=== PATIENT | male | born 1970 | race American Indian/Alaskan Native ===

== ENCOUNTER 2016-05-29 00:20 | Emergency (ER) | payer SELFPAY ==
--- NOTE | 2016-05-29 01:17 | C.PDOC ---
History Of Present Illness Patient presents to the ED complaining of a sudden onset of abdominal pain. Patient also complains of nausea and vomiting. He had 3 similar episodes in the past 6 months. This is the first time he is seeking medical attention for his symptoms. Patient states the pain is sharp and crampy. Patient denies any fever or chills. He is able to tolerate po. Time Seen by Provider: 05/29/16 01:24 Chief Complaint (Nursing): Abdominal Pain History Per: Patient History/Exam Limitations: no limitations Onset/Duration Of Symptoms: Sudden Onset Current Symptoms Are (Timing): Still Present Context: Other Severity: Mild Pain Scale Rating Of: 3 Location Of Pain/Discomfort: Diffuse Radiation Of Pain To:: None Quality Of Discomfort: Sharp, Cramping, "Pain" Associated Symptoms: Nausea, Vomiting Exacerbating Factors: None Alleviating Factors: None Last Bowel Movement: Today Recent travel outside of the [place]: No Additional History Per: Patient Past Medical History Reviewed: Historical Data, Nursing Documentation, Vital Signs Vital Signs: Last Vital Signs Temp 98.9 F 05/29/16 03:25 Pulse 87 05/29/16 03:25 Resp 16 05/29/16 03:25 BP 116/70 05/29/16 03:25 Pulse Ox 99 05/29/16 03:25 Family History: States: Unknown Family Hx - Social History Hx Alcohol Use: Yes Hx Substance Use: Yes - Immunization History Hx Tetanus Toxoid Vaccination: No Hx Influenza Vaccination: Yes Hx Pneumococcal Vaccination: No Review Of Systems Constitutional: Negative for: Fever, Chills Gastrointestinal: Positive for: Nausea, Vomiting, Abdominal Pain Physical Exam - Physical Exam Appears: Non-toxic, No Acute Distress Skin: Warm, Dry Head: Atraumatic, Normacephalic Eye(s): bilateral: PERRL, EOMI Oral Mucosa: Moist Neck: Supple Chest: Symmetrical Cardiovascular: Rhythm Regular Respiratory: No Rales, No Rhonchi, No Wheezing Gastrointestinal/Abdominal: Soft, Tenderness (RUQ), No Guarding, No Rebound Back: No CVA Tenderness Extremity: Bilateral: Atraumatic Neurological/Psych: Oriented x3 ED Course And Treatment - Laboratory Results Result Diagrams: 05/29/16 01:34 05/29/16 01:34 O2 Sat by Pulse Oximetry: 100 (RA) Pulse Ox Interpretation: Normal Progress Note: Plan: Labs, Pepcid, Zofran, Toradol, IV fluids Reevaluation Time: 04:53 Reassessment Condition: Improved Medical Decision Making Medical Decision Making: Upon provider reevaluation patient is feeling better, is medically stable, and requires no further treatment in the ED at this time. Patient will be discharged home with Rx for flagyl and tramadol . Counseling was provided and all questions were answered regarding diagnosis and need for follow up with dr nuno. There is agreement to discharge plan. Return if symptoms persist or worsen. Disposition Counseled Patient/Family Regarding: Studies Performed, Diagnosis, Need For Followup, Rx Given - Disposition Referrals: Ko Nuno MD [Staff Provider] - Disposition: HOME/ ROUTINE Disposition Time: 01:16 Condition: FAIR Additional Instructions: Please return if symptoms recur Prescriptions: Metronidazole [Flagyl] 500 mg PO TID #21 tablet traMADol [Ultram] 50 mg PO TID #15 tab Instructions: Abdominal Pain (ED), Enteritis (ED) - Clinical Impression Clinical Impression: Abdominal pain, Enteritis - Scribe Statement The provider has reviewed the documentation as recorded by the Radha Ya Provider Attestation: All medical record entries made by the Orlyibstarr were at my direction and personally dictated by me. I have reviewed the chart and agree that the record accurately reflects my personal performance of the history, physical exam, medical decision making, and the department course for this patient. I have also personally directed, reviewed, and agree with the discharge instructions and disposition.
[2016-05-29] MEDS ORDERED: Sodium Chloride 0.9% 1,000 ML IV ONE (01:24)
[2016-05-29 01:37] LABS: BASO # 0.1 K/uL (0.0-0.2); BASO % 0.4 % (0.0-2.0); EOS # 0.1 K/uL (0.0-0.7); EOS % 0.5 % (0.0-4.0); HEMATOCRIT 38.4 % (35.0-51.0); LYMPH # 3.2 K/uL (1.0-4.3); LYMPH % 16.8 % (20.0-40.0); MEAN CELL VOLUME 85.2 fL (80.0-94.0); MEAN CORPUSCULAR HEMOGLOBIN 28.3 pg (27.0-31.0); MEAN CORPUSCULAR HGB CONC 33.2 g/dL (33.0-37.0); MONO # 1.3 K/uL (0.0-0.8); MONO % 6.7 % (0.0-10.0); RED CELL DISTRIBUTION WIDTH 15.1 % (11.5-14.5); WHITE BLOOD COUNT 18.8 K/uL (4.8-10.8)
[2016-05-29 01:39] LABS: RBC URINE < 1 /hpf (0-3); URINE BILIRUBIN NEGATIVE (NEGATIVE); URINE BLOOD NEGATIVE (NEGATIVE); URINE COLOR Yellow (YELLOW); URINE GLUCOSE (UA) NORMAL (Normal); URINE KETONE NEGATIVE (NEGATIVE); URINE LEUKOCYTE ESTERASE NEG Leu/uL (Negative); URINE PROTEIN NEGATIVE (NEGATIVE); URINE UROBILINOGEN NORMAL mg/dL (0.2-1.0); WBC URINE < 1 /hpf (0-5)
[2016-05-29 01:45] LABS: CHLORIDE 105 mmol/L (98-107); POTASSIUM 3.9 mmol/L (3.6-5.2); SODIUM 141 mmol/L (132-148)
[2016-05-29 01:47] LABS: ALB/GLOB RATIO 1.5 (1.0-2.1); ALKALINE PHOSPHATASE 56 U/L (38-126); AST/SGOT 24 U/L (17-59); BILIRUBIN,TOTAL 0.6 mg/dL (0.2-1.3); CARBON DIOXIDE 27 mmol/L (22-30); GFR AFRICAN-AMERICAN > 60; TOTAL PROTEIN 6.6 g/dL (6.3-8.3)
[2016-05-29 01:48] LABS: ALT/SGPT 44 U/L (21-72); BLOOD UREA NITROGEN 14 mg/dL (9-20); CALCIUM 8.4 mg/dl (8.6-10.4); GLUCOSE,RANDOM 96 mg/dL (75-110)
[2016-05-29] MEDS ORDERED: Piperacillin/Tazobact 3.375 gm 100 ML IVPB STA (01:56)
[2016-05-29] MEDS ORDERED: Piperacillin/Tazobact 3.375 gm 100 ML IVPB ONE (02:09)
[2016-05-29] MEDS ORDERED: Iohexol 350mg/ml 100 ML ONE (02:31)
[2016-05-29 03:27] VITALS: RESP 16
[2016-05-29 05:07] VITALS: BP 126/80; PULSE 83; TEMP 98.4; O2SAT 99
--- NOTE | 2016-05-29 09:54 | CT ---
PROCEDURE: CT Abdomen and Pelvis without intravenous contrast HISTORY: Right upper quadrant abdominal pain COMPARISON: None. TECHNIQUE: Multiple contiguous axial images were performed through the abdomen and pelvis with the use of intravenous contrast. Subsequently, sagittal coronal reformatted images were obtained.. Contrast Dose: 100 cc of Omnipaque 350 intravenous contrast was administered. Radiation dose: Total exam DLP = 477 mGy-cm. This CT exam was performed using one or more of the following dose reduction techniques: Automated exposure control, adjustment of the mA and/or kV according to patient size, and/or use of iterative reconstruction technique. FINDINGS: LOWER THORAX: Mild lingular atelectasis. LIVER: Unremarkable. No gross lesion or ductal dilatation. GALLBLADDER AND BILE DUCTS: Decompressed gallbladder. PANCREAS: Unremarkable. No gross lesion or ductal dilatation. SPLEEN: Unremarkable. ADRENALS: Unremarkable. No mass. KIDNEYS AND URETERS: Unremarkable. No hydronephrosis. No solid mass. VASCULATURE: Unremarkable. No aortic aneurysm. BOWEL: Small bowel wall thickening without surrounding inflammation or fluid to confirm an acute enteritis. Minimal nonspecific thickening of the sigmoid colon. Clinical correlation. APPENDIX: Unremarkable. Normal appendix. PERITONEUM: Unremarkable. No free fluid. No free air. LYMPH NODES: Unremarkable. No enlarged lymph nodes. BLADDER: Unremarkable. REPRODUCTIVE: Unremarkable. BONES: No acute fracture. OTHER FINDINGS: None. IMPRESSION: Mural thickening within multiple loops of small bowel without surrounding inflammation or fluid to confirm an enteritis. Clinical correlation. Decompressed gallbladder. Minimal nonspecific thickening of the sigmoid colon. Clinical correlation. Appendix appears preserved. These findings were preliminarily reported at 3:47 a.m. on 05/29/[address] Kiarra Leon from [facility].
== END 2016-05-29 05:07 | disposition home or self-care (01) ==
LOC: C.ER 00:20
DX: K52.9 Noninfective gastroenteritis and colitis, unspecified (principal); R10.11 Right upper quadrant pain
CPT/HCPCS: 74177; 80053; 81001; 83690; 85025; 85610; 85730; 96361; 96365; 96375; 99284; J1885; J2405; J2543; J7040; Q9967

== ENCOUNTER 2016-09-11 01:13 | Emergency (ER) | payer BC, OTHER ==
[2016-09-11 01:14] VITALS: BMI 27.4
[2016-09-11 01:30] VITALS: RESP 18
[2016-09-11] MEDS ORDERED: Bacitracin 500 Units/gm Oint Foilpak UD ONE (01:30)
[2016-09-11] MEDS ORDERED: Bacitracin Ointment 30 GM TUBE TOP STA (01:33)
[2016-09-11] MEDS ORDERED: Oxycodone/Acetaminophen 5/325 mg Tab PO STA (02:11)
[2016-09-11] MEDS ORDERED: Oxycodone/Acetaminophen 5/325 mg Tab ONE (02:13)
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
[2016-09-11 02:36] VITALS: BP 116/79; PULSE 86; TEMP 98.2
[2016-09-11 06:27] VITALS: O2SAT 96
== END 2016-09-11 02:36 | disposition home or self-care (01) ==
LOC: C.ER 01:13 → SUPCPDRO 01:13 → C.ER 02:36
DX: S09.90XA Unspecified injury of head, initial encounter (principal); S80.212A Abrasion, left knee, initial encounter; S80.211A Abrasion, right knee, initial encounter; Y08.89XA Assault by other specified means, initial encounter; Y93.89 Activity, other specified; Y92.9 Unspecified place or not applicable

== ENCOUNTER 2017-05-01 10:05 | Emergency (ER) | payer BC ==
[2017-05-01 10:06] VITALS: BMI 27.4
[2017-05-01 10:13] VITALS: BP 131/80; PULSE 78; RESP 20; TEMP 98.2; O2SAT 99
--- NOTE | 2017-05-01 10:49 | C.PDOC ---
History Of Present Illness Pt states he had left elbow surgery on 04/23/2017 and ran out of his pain medication. Time Seen by Provider: 05/01/17 10:38 Chief Complaint (Nursing): Upper Extremity Problem/Injury History Per: Patient Onset/Duration Of Symptoms: Days (chronic) Current Symptoms Are (Timing): Still Present Quality: "Pain" Severity: Moderate Additional History Per: Prior Records Past Medical History Reviewed: Historical Data, Nursing Documentation, Vital Signs Vital Signs: Last Vital Signs Temp 98.2 F 05/01/17 10:07 Pulse 78 05/01/17 10:07 Resp 20 05/01/17 10:07 BP 131/80 05/01/17 10:07 Pulse Ox 99 05/01/17 10:49 - Medical History PMH: No Chronic Diseases Other Surgeries: Left elbow Family History: States: Unknown Family Hx - Social History Hx Alcohol Use: Yes Hx Substance Use: No - Immunization History Hx Tetanus Toxoid Vaccination: Yes Hx Influenza Vaccination: Yes Hx Pneumococcal Vaccination: No Review Of Systems Except As Marked, All Systems Reviewed And Found Negative. Constitutional: Negative for: Fever, Weakness Cardiovascular: Negative for: Chest Pain Respiratory: Negative for: Shortness of Breath Gastrointestinal: Negative for: Vomiting, Abdominal Pain Skin: Negative for: Rash Neurological: Negative for: Weakness, Numbness Physical Exam - Physical Exam Appears: Non-toxic, No Acute Distress Skin: Normal Color, Warm, Dry, No Rash Head: Atraumatic, Normacephalic Neck: Normal ROM, Supple Extremity: Capillary Refill (wnl), Other (Left elbow surgical wound closed with dedrick. No signs of infection.) Pulses: Left Radial: Normal Neurological/Psych: Oriented x3, Normal Motor, Normal Sensation ED Course And Treatment O2 Sat by Pulse Oximetry: 99 Pulse Ox Interpretation: Normal Progress Note: Review of [place] [employer] showes pt on opioid pain meds consistently for at least the past year. Latest prescriptions: 04/08/17: Percocet 10/325mg, 90 tabs. 04/22/17: Percocet 10/325mg, 90 tabs. 04/25/17: Oxycodone 10mg, 20 tabs. Pt was given Toradol 60mg IM. Disposition Counseled Patient/Family Regarding: Diagnosis, Need For Followup, Rx Given - Disposition Referrals: Shade Foss MD [Medical Doctor] - Disposition: HOME/ ROUTINE Disposition Time: 11:10 Condition: STABLE Additional Instructions: Follow up with your orthopedic surgeon. Return to the ER if you develop fever, redness, pus drainage, worsening of symptoms or if you have any other concerns. Prescriptions: Naproxen [Naprosyn] 1 tab PO BID PRN #20 tab PRN Reason: Pain Instructions: Managing Pain After Surgery Forms: General Discharge Instructions - Clinical Impression Clinical Impression: Left elbow pain
== END 2017-05-01 11:05 | disposition home or self-care (01) ==
LOC: C.ER 10:05
DX: M25.522 Pain in left elbow (principal)
CPT/HCPCS: 96372; 99283; J1885